=== PATIENT | male | born 1980 | race Caucasian/White ===

== ENCOUNTER 2017-04-05 09:31 | Emergency (ER) | payer SELFPAY ==
[~2017-04-05] VITALS: Ht 182.9 cm; Wt 97.7 kg
[2017-04-05] MEDS ORDERED: OMEP40CA2 PO (09:40)
[2017-04-05] MEDS ORDERED: HYDR-3713 PO (09:40)
[2017-04-05] MEDS ORDERED: MELO15TA4 PO (09:40)
[2017-04-05] MEDS ORDERED: NORT50CA PO (09:40)
[2017-04-05] MEDS ORDERED: MORPHINE 4 MG/ML 1ML SYRINGE IV ONE (09:45)
[2017-04-05] MEDS ORDERED: ONDANSETRON 4MG/2ML VIAL (J2405) IV ONE (09:45)
[2017-04-05] MEDS ORDERED: ceFAZolin SOD 1 GM in D5W MINI-BAG PLUS 50 ML IV ONE (09:45)
--- NOTE | 2017-04-05 10:10 | REP ---
Clinical: Trauma. Crush injury. Technique: AP, lateral, bilateral oblique views of the right hand. Findings: Soft tissue swelling overlying the third and fourth digits is appreciated and small flecks of foreign body material cannot be excluded. A subtle nondisplaced fracture involving the terminal tuft of the fourth digit distal phalanx is also suggested and should be correlated clinically. No other fracture dislocation appreciated. Impression: 1. Swelling and possible minuscule foreign body material overlies the third and fourth digits. 2. Cannot exclude nondisplaced terminal tuft fracture fourth digit distal phalanx. Signed by Yosef Mathew MD 04/05/2017 10:01 A
[2017-04-05] MEDS: HYDROmorphone HCL 1 MG/ML SYRINGE (J1170) IV PRN ×2 (10:23→11:32)
[2017-04-05] MEDS ORDERED: LIDOCAINE 1% MDV 20ML VIAL SC ONE (11:30)
[2017-04-05 12:49] VITALS: BP 142/86
[2017-04-05] MEDS ORDERED: PERC5TAB12 PO (12:56)
[2017-04-05] MEDS ORDERED: KEFL500C17 PO (12:56)
== END 2017-04-05 13:36 | disposition home or self-care (01) ==
LOC: M ED 09:31
DX: S61.212A Laceration without foreign body of right middle finger without damage to nail, initial encounter (principal); S61.214A Laceration without foreign body of right ring finger without damage to nail, initial encounter; S67.21XA Crushing injury of right hand, initial encounter; W23.0XXA Caught, crushed, jammed, or pinched between moving objects, initial encounter; Y92.019 Unspecified place in single-family (private) house as the place of occurrence of the external cause; Y93.89 Activity, other specified; Y99.8 Other external cause status; Z79.899 Other long term (current) drug therapy; Z87.891 Personal history of nicotine dependence
CPT/HCPCS: 12002; 73130; 96374; 96375; 96376; 99284; J0690; J1170; J2405

== ENCOUNTER 2020-12-20 04:21 | Emergency (ER) | payer SELFPAY ==
[~2020-12-20] VITALS: Ht 182.9 cm; Wt 102.6 kg
[~2020-12-20 04:21] MED LIST: HYDR-3713 PO; KEFL500C17 PO; MELO15TA28 PO; NORT50CA PO; OMEP40CA97 PO; PERC5TAB12 PO
[2020-12-20] MEDS ORDERED: TRAM50TA2 PO (04:34)
[2020-12-20 05:00] LABS: BASO % 0.5 % (0.0-1.0); EOS # 0.1 10^3/uL (0.0-0.5); EOS % 1.2 % (0.0-3.0); HEMATOCRIT 46.6 % (42.0-52.0); HEMOGLOBIN 16.3 g/dl (13.5-17.5); LYMPH # 2.1 10^3/uL (1.5-5.0); LYMPH % 27.1 % (24.0-44.0); MEAN CORPUSCULAR HEMOGLOBIN 31.6 pg (27.0-33.0); MEAN CORPUSCULAR VOLUME 90.3 fl (80.0-96.0); MONO # 0.7 10^3/uL (0.0-0.8); MONO % 9.3 % (2.0-8.0); NEUTROPHILS # 4.7 10^3/uL (1.5-8.5); NEUTROPHILS % 61.4 % (36.0-66.0); PLATELET COUNT, AUTOMATED 214 10^3/uL (150-450); RED BLOOD COUNT 5.16 10^6/uL (4.30-6.10); WHITE BLOOD COUNT 7.7 10^3/uL (4.0-10.0)
[2020-12-20] MEDS ORDERED: ONDANSETRON 4MG/2ML VIAL IV ONE (05:10)
[2020-12-20] MEDS ORDERED: KETOROLAC 30 MG/ML 1ML VIAL IV ONE (05:10)
[2020-12-20 05:31] LABS: ALBUMIN 4.3 GM/DL (3.2-5.2); ALT/SGPT 47 U/L (12-78); BILIRUBIN,DIRECT 0.3 MG/DL (0.0-0.2); BILIRUBIN,TOTAL 1.3 MG/DL (0.2-1.0); BLOOD UREA NITROGEN 18 MG/DL (7-18); CARBON DIOXIDE LEVEL 25 MEQ/L (21-32); CHLORIDE LEVEL 106 MEQ/L (98-107); CREATININE FOR GFR 0.98 MG/DL (0.70-1.30); GLOMERULAR FILTRATION RATE > 60.0 (>60); GLUCOSE, FASTING 110 MG/DL (70-100); LIPASE 84 U/L (73-393); POTASSIUM SERUM 3.4 MEQ/L (3.5-5.1); SODIUM LEVEL 140 MEQ/L (136-145); TOTAL PROTEIN 6.9 GM/DL (6.4-8.2)
--- NOTE | 2020-12-20 08:32 | REPVR ---
PROCEDURE INFORMATION: Exam: CT Abdomen And Pelvis Without Contrast Exam date and time: 12/20/2020 7:12 AM Age: 40 years old Clinical indication: Abdominal pain; Additional info: Left flank pain, renal colic TECHNIQUE: Imaging protocol: Computed tomography of the abdomen and pelvis without contrast. Radiation optimization: All CT scans at this facility use at least one of these dose optimization techniques: automated exposure control; mA and/or kV adjustment per patient size (includes targeted exams where dose is matched to clinical indication); or iterative reconstruction. COMPARISON: No relevant prior studies available. FINDINGS: Tubes, catheters and devices: A thoracic spinal stimulator device is identified. Lungs: There is subpleural atelectasis of the dependent portions of the lungs. Liver: There is an approximately 3 cm ill-defined hypodense mass in the left lobe of the liver most likely representing a hemangioma. Ultrasound correlation is recommended. Gallbladder and bile ducts: Normal. No calcified stones. No ductal dilation. Pancreas: Normal. No ductal dilation. Spleen: Normal. No splenomegaly. Adrenal glands: Normal. No mass. Kidneys and ureters: 3 mm obstructing stone is noted in the left distal ureter just proximal to the UV junction axial image 131 with mild proximal hydroureteronephrosis suggesting obstructive uropathy. The right kidney is normal in size without evidence for calculus or hydronephrosis. Stomach and bowel: Unremarkable. No obstruction. No mucosal thickening. Appendix: No evidence of appendicitis. Intraperitoneal space: Unremarkable. No free air. No significant fluid collection. Vasculature: Unremarkable. No abdominal aortic aneurysm. Lymph nodes: Unremarkable. No enlarged lymph nodes. Urinary bladder: The urinary bladder is well distended without evidence for calculus , masses or wall thickening. Reproductive: Unremarkable as visualized. Bones/joints: Examination reveals the patient to be status post posterior spinal fusion with laminectomy at L5 and S1 levels. Soft tissues: Unremarkable. IMPRESSION: 1. There is an approximately 3 cm ill-defined hypodense mass in the left lobe of the liver most likely representing a hemangioma. Ultrasound correlation is recommended. 2. 3 mm obstructing stone is noted in the left distal ureter just proximal to the UV junction axial image 131 with mild proximal hydroureteronephrosis suggesting obstructive uropathy. Electronically signed by: Sergei Dumont On 12/20/2020 08:32:03 AM
[2020-12-20] MEDS ORDERED: ONDA4TAB6 PO (09:14)
[2020-12-20] MEDS ORDERED: FLOM0.4C39 PO (09:14)
[2020-12-20] MEDS ORDERED: KETO10TAB PO (09:14)
[2020-12-20 10:06] VITALS: BP 146/92
[2020-12-20] MEDS ORDERED: HYDR-3713 PO (10:36)
--- NOTE | 2020-12-26 06:48 | ED PDOC ---
Post-Departure Follow-Up dr acosta faxed formal report of ct abd/p for fu. pt also sent certified [facility] re liver mass. needs work up as outpt. obtain pcp name and fax. if no pcp name refer to [facility] and fax report there please after reviewing ct report w pt . Janette Velasquez MD Dec 26, 2020 06:48
== END 2020-12-20 10:07 | disposition home or self-care (01) ==
LOC: M ED 04:21
DX: N20.1 Calculus of ureter (principal); D18.09 Hemangioma of other sites; Z79.899 Other long term (current) drug therapy
CPT/HCPCS: 74176; 80048; 80076; 81001; 83690; 85025; 96374; 96375; 99284; J1885; J2405